=== PATIENT | female | born 1975 | race Caucasian/White ===

== ENCOUNTER 2019-01-05 03:03 | Emergency (ER) | payer MEDICAID ==
[~2019-01-05] VITALS: Ht 167.6 cm; Wt 75.4 kg
[2019-01-05 03:07] VITALS: BP 115/73
== END 2019-01-05 03:38 | disposition home or self-care (01) ==
LOC: ED 03:37
DX: K08.89 Other specified disorders of teeth and supporting structures (principal)
CPT/HCPCS: 99283

== ENCOUNTER 2019-05-11 07:37 | Emergency (ER) | payer MEDICAID ==
[~2019-05-11] VITALS: Ht 167.6 cm; Wt 70.0 kg
[2019-05-11 07:48] VITALS: BP 106/58
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
--- NOTE | 2019-05-11 08:01 | NUR ---
PA AT BEDSIDE TO ASSESS PT NOW.
[2019-05-11] MEDS ORDERED: HYDROcodone/APAP 5/325 TABLET ONE (08:10)
--- NOTE | 2019-05-11 08:12 | NUR ---
PT MEDICATED PER EMAR.
[2019-05-11] MEDS ORDERED: HYDROcodone/APAP 5/325 TABLET PO ONE (08:30)
== END 2019-05-11 08:21 | disposition home or self-care (01) ==
LOC: ED 08:00
DX: K08.89 Other specified disorders of teeth and supporting structures (principal); R11.0 Nausea
CPT/HCPCS: 99283